=== PATIENT | male | born 1965 | race Caucasian/White ===

== ENCOUNTER 2023-04-22 12:10 | Outpatient (OUT) | payer OTHER, SELFPAY ==
[2023-04-22 13:41] LABS: Alanine Aminotransferase 38 U/L (16-63); Anion Gap 16.2; Aspartate Amino Transferase 17 U/L (15-37); BUN Creatinine Ratio 14.5; Calcium 9.5 mg/dL (8.5-10.1); Carbon Dioxide 25.9 mmol/L (21.0-32.0); Chloride 103 mmol/L (98-107); Chol HDL Ratio 2.9; Cholesterol 132 mg/dL (<=200); Estimated GFR (African America >60 (>=60); Estimated GFR (Non-African Ame >60 (>=60); Glucose 115 mg/dL (74-106); HDL Cholesterol 46 mg/dL (40-60); LDL Cholesterol Calculated 59.8 mg/dL; Potassium 4.1 mmol/L (3.5-5.1); Sodium 141 mmol/L (136-145); Triglycerides 131 mg/dL (<=150); VLDL CHOLESTEROL 26.2 mg/dL
== END 2023-04-22 12:11 | disposition home or self-care (01) ==
LOC: LAB 12:16
PROVIDERS: Visit Provider Nurse Practitioner
DX: I10 Essential (primary) hypertension (principal); I25.10 Atherosclerotic heart disease of native coronary artery without angina pectoris; E78.5 Hyperlipidemia, unspecified
CPT/HCPCS: 36415; 80048; 80061; 84450; 84460

== ENCOUNTER 2025-01-02 09:37 | Outpatient (OUT) | payer OTHER, SELFPAY ==
--- OUTSIDE RECORDS SUMMARY | 2025-01-01 09:30 | XMS_ITS | Encounter Summary ---
Author Organization [facility] Address [address] [place] [address] Phone Care Team Providers Care Financial Brokers Name Role Phone ByronPatric doll DO Primary Care Provider Reason for Referral * Consultation (Routine) - Authorized Specialty Diagnoses / Procedures Referred By Anurag phelan Referred To Contact Cardiology Diagnoses Coronary arteriosclerosis after percutaneous transluminal coronary angioplasty (PTCA) Procedures Follow Up In Cardiology Leta Cordero APRN-CNP [address] [place] [address] [address], [address] [address] Phone: tel: fax: Jose Gomez DO [address] [place] [address] [address], [address] [address] Phone: tel: fax: Referral ID Status Reason Start Date Expiration Date V isits Requested Visits Authorized [id number] Authorized 01/01/2025 01/01/2026 1 1 Reason for Visit * Reason Comments Annual Exam 1 year, coronary art madiha disease * Consultation (Routine) - Authorized Specialty Diagnoses / Procedures Referred By Contabby t Referred To Contact Cardiology Diagnoses Coronary arteriosclerosis after percutaneous transluminal coronary angioplasty (PTCA) Procedures Follow Up In Cardiology Jose Gomez DO [address] [place] [address] [address], [address] [address] Phone: tel: fax: Jose Gomez DO [address] [place] [address] [address], [address] [address] Phone: tel: fax: Referral ID Status Reason Start Date Expiration Date V isits Requested Visits Authorized [id number] Authorized 12/29/2023 12/28/2024 1 1 Encounter Details Date Type Department Care Team (Latest Contact Info) Description 01/01/2025 9:30 AM EDT Office Visit [facility] [address] [phone] Leta Cordero APRN-CNP 703 [facility] [address], [address] [address] Mixed hyperlipidemia (Primary Dx); Coronary arteriosclerosis after percutaneous transluminal coronary angioplasty (PTCA); Hypertension, benign; Ischemic cardiomyopathy; Morbid obesity with BMI of 40.0-44.9, adult (Multi) Social History Tobacco Use Types Packs/Day Years Used Date Smoking Tobacco: Former Cigarettes Smokeless Tobacco: Former Chew Alcohol Use Standard Drinks/Week Comments Yes 2 (1 standard drink = 0.6 oz pur e alcohol) social PHQ-2 Answer Date Recorded Patient Health Questionnaire-2 Score 0 05/03/2023 Sex and Gender Information Value Date Recorded Sex Assigned at Not on file Legal Sex Male 2:19 PM EST Gender Identity Not on file Sexual Orientation Not on file COVID-19 Exposure Response Date Recorded In the last 10 days, have yo u been in contact with someone who was confirmed or suspected to have Coronavirus/COVID-19? No / Unsure 01/01/2025 9:37 AM EDT documented as of this encounter Last Filed Vital Signs Vital Sign Reading Time Taken Comments Blood Pressure 138/76 01/01/2025 9:49 AM EDT Pulse 86 01/01/2025 9:49 AM EDT Temperature - - Respiratory Rate - - Oxygen Saturation - - Inhaled Oxygen Concentration - - Weight 145 kg (320 lb) 01/01/2025 9:49 AM EDT Height 185.4 cm (6' 1 ) 01/01/2025 9:49 AM EDT Body Mass Index 42.22 01/01/2025 9:49 AM EDT documented in this encounter Patient Instructions * Patient Instructions* MINH Reyes - 01/01/2025 9:30 AM EDT Please bring all medicines, vitamins, and herbal supplements with you when you come to the office. Prescriptions will not be filled unless you are compliant with your follow up appointments or have a follow up appointment scheduled as per instruction of your physician. Refills should be requested at the time of your visit. PLAN: Through informed decision making process incorporating patients unique circumstances, the followingtreatment plan will be initiated: 1. Prescription drug management of cardiovascular medication for efficacy, adherence to treatment, side effect assessment and polypharmacy. Current treatment clinically warranted and to continue without modifications. - Resume ASA 81mg daily 2. Annual labs (chem6, lipids) 3. You will need something to control your cholesterol due to coronary disease (only intolerant to lipitor in the past) - may try statin ( worried about your arthritis) or zetia, maybe repatha. 4. Return for follow-up; in the interim, contact the office if new symptoms arise. Dr. Gomez annual Discussed the dynamic nature of coronary artery disease and the importance of seeking medical attention if new symptoms arise. documented in this encounter Progress Notes * MINH Reyes - 01/01/2025 9:30 AM EDT Chief Complaint I am doing okay Reason for Visit Annual follow-up Patient presents to the office today for outpatient follow-up for coronary artery disease and secondary prevention. Last evaluated in clinic by Dr. Gomez December 2023. At that time, losartan added to medical regimen. Presents today ambulatory with steady gait. Accompanied by spouse Patient denies any hospitalizations or significant changes to interval medical history since last office follow-up. He does not follow routinely with PCP. Recently established with rheumatology and diagnosed with osteoarthritis. History of Present Illness Patient is a pleasant 59-year-old gentleman who presents to the office with no voiced cardiovascular complaints. From an activity standpoint he does yard work works out in the garden. Push mows his lawn for 45 minutes to 1 hour. His prior NSTEMI discomfort was left arm pain rating up into his jaw described as an aching sensation , denies-no nitroglycerin use. Only concern today is increased arthritic pain. He does present off of his statin and states he was unable to tolerate even every 3-day dosing. At this time, we will check lipid status to get baseline likely initiate Zetia. Once arthritis is under better control could consider challenge to different statins. Patient reports that overall has no complaint(s) of chest pain, chest pressure/discomfort, claudication, dyspnea, exertional chest pressure/discomfort, fatigue, irregular heart beat, lower extremity edema, and near-syncope Daily activity: > 4 METs Denies any change in exercise capacity or functional tolerance since last office visit. The importance of secondary prevention reviewed: HTN: Optimal HLD: Statin intolerant DM: Denies Smoker: Denies BMI: Reviewed the merits of healthy lifestyle choices on overall cardiovascular health. Reinforced the importance of establishing with PCP for primary prevention measures. Review of Systems Cardiovascular: Negative for chest pain, dyspnea on exertion, irregular heartbeat, leg swelling, near-syncope, orthopnea, palpitations, paroxysmal nocturnal dyspnea and syncope. Visit Vitals BP 138/76 (BP Location: Right arm, Patient Position: Sitting) Pulse 86 Ht 1.854 m (6' 1 ) Wt 145 kg (320 lb) BMI 42.22 kg/m?? Smoking Status Former BSA 2.73 m?? Physical Exam Constitutional: Appearance: Normal appearance. Cardiovascular: Rate and Rhythm: Normal rate and regular rhythm. Pulmonary: Effort: Pulmonary effort is normal. Breath sounds: Normal breath sounds. Abdominal: Palpations: Abdomen is soft. Musculoskeletal: Right lower leg: No edema. Left lower leg: No edema. Skin: General: Skin is warm and dry. Neurological: Mental Status: He is alert and oriented to person, place, and time. Psychiatric: Attention and Perception: Attention normal. Mood and Affect: Mood normal. ALLERGIES: Patient has no known allergies. Current Outpatient Medications Medication Instructions aspirin 81 mg, oral, Daily carvedilol (COREG) 6.25 mg, oral, 2 times daily hydroxychloroquine (Plaquenil) 200 mg tablet 1 tablet, 2 times daily losartan (COZAAR) 25 mg, oral, Daily meloxicam (MOBIC) 7.5 mg, 2 times daily metaxalone (SKELAXIN) 400 mg, Every 8 hours PRN nitroglycerin (Nitrostat) 0.[address] 1 TABLET UNDER THE TONGUE EVERY 5 MINUTES UP TO 3 DOSES NEEDED FOR CHEST PAIN. Assessment: Atherosclerotic heart disease of kenaitze coronary artery without angina pectoris May 28, 2021 NSTEMI Proximal RCA PCI/Skypoint 4 x 28 mm Proximal LAD PCI/Oj 4 x 30 mm Circumflex 30% Current daily activity greater than 4 METS without recurrent symptoms. Hyperlipidemia He has been unable to tolerate low-dose atorvastatin. Presents to the office today off of statin. Discussed the importance of lipid control. He has recently been struggling with arthritic complaints. Will check lipids, likely initiate Zetia. Once arthritis is under better control could try challenge with additional statin. Hypertension, benign Optimal in office Ischemic cardiomyopathy May 2021 cardiac cath LVEF 40% May 2021 TTE LVEF 55 to 60% September 2019 TTE LVEF 65-70% Morbid obesity with BMI of 40.0-44.9, adult (Multi) Reviewed the merits of healthy lifestyle choices on overall cardiovascular health. Plan: Through informed decision making process incorporating patients unique circumstances, the followingtreatment plan will be initiated: 1. Prescription drug management of cardiovascular medication for efficacy, adherence to treatment, side effect assessment and polypharmacy. Current treatment clinically warranted and to continue without modifications. - Resume ASA 81mg daily 2. Annual labs (chem6, lipids) 3. You will need something to control your cholesterol due to coronary disease (only intolerant to lipitor in the past) - may try statin ( worried about your arthritis) or zetia, maybe repatha. 4. Return for follow-up; in the interim, contact the office if new symptoms arise. Dr. Gomez annual Discussed the dynamic nature of coronary artery disease and the importance of seeking medical attention if new symptoms arise. Leta Cordero MSN, QUILLER RUNNER-APPLICATION PROGRAMMER ANALYST, PMHNP-[facility] [place], [place] Please excuse any errors in grammar or translation related to this dictation. Voice recognition software was utilized to prepare this document. documented in this encounter Miscellaneous Notes * Assessment & Plan Note - MINH Reyes - 01/01/2025 4:14 PM EDT Associated Problem(s): Morbid obesity with BMI of 40.0-44.9, adult (Multi) Reviewed the merits of healthy lifestyle choices on overall cardiovascular health. * Assessment & Plan Note - MINH Reyes - 01/01/2025 4:14 PM EDT Associated Problem(s): Ischemic cardiomyopathy May 2021 cardiac cath LVEF 40% May 2021 TTE LVEF 55 to 60% September 2019 TTE LVEF 65-70% * Assessment & Plan Note - MINH Reyes - 01/01/2025 4:14 PM EDT Associated Problem(s): Hypertension, benign Optimal in office * Assessment & Plan Note - MINH Reyes - 01/01/2025 4:14 PM EDT Associated Problem(s): Hyperlipidemia He has been unable to tolerate low-dose atorvastatin. Presents to the office today off of statin. Discussed the importance of lipid control. He has recently been struggling with arthritic complaints. Will check lipids, likely initiate Zetia. Once arthritis is under better control could try challenge with additional statin. * Assessment & Plan Note - MINH Reyes - 01/01/2025 4:13 PM EDT Associated Problem(s): Atherosclerotic heart disease of kenaitze coronary artery without angina pectoris May 28, 2021 NSTEMI Proximal RCA PCI/Skypoint 4 x 28 mm Proximal LAD PCI/[place] 4 x 30 mm Circumflex 30% Current daily activity greater than 4 METS without recurrent symptoms. documented in this encounter Plan of Treatment Upcoming Encounters Date Type Department Care Team (Late st Contact Info) Description 01/07/2026 3:20 PM EDT Office Visit [facility] [address] [place] [address] Jose Gomez DO [address], [address] [place] [address] Scheduled Orders Name Type Priority Associated Diagnoses Orde r Schedule Lipid Panel Lab Routine Coronary arteriosclerosis after percutaneous transluminal coronary angioplasty (PTCA) Mixed hyperlipidemia Expected: 01/01/2025 (Approximate), Expires: 01/01/2026 Alanine Aminotransferase Lab Routine Coronary arteriosclerosis after percutaneous transluminal coronary angioplasty (PTCA) Mixed hyperlipidemia Expected: 01/01/2025 (Approximate), Expires: 01/01/2026 Aspartate Aminotransferase Lab Routine Coronary arteriosclerosis after percutaneous transluminal coronary angioplasty (PTCA) Mixed hyperlipidemia Expected: 01/01/2025 (Approximate), Expires: 01/01/2026 Basic Metabolic Panel Lab Routine Coronary arteriosclerosis after percutaneous transluminal coronary angioplasty (PTCA) Mixed hyperlipidemia Expected: 01/01/2025 (Approximate), Expires: 01/01/2026 documented as of this encounter Visit Diagnoses Diagnosis Mixed hyperlipidemia- Primary Coronary arteriosclerosis after percutaneous transluminal coronary angioplasty (PTCA) Hypertension, benign Essential hypertension, benign Ischemic cardiomyopathy Other specified forms of chronic ischemic heart disease Morbid obesity with BMI of 40.0-44.9, adult (Multi) documented in this encounter Additional Health Concerns Assessment Noted Time A fall risk assessment has been complete d for the patient 05/03/2023 9:41 AM EDT documented as of this encounter Care Teams Financial Brokers Relationship Specialty Start Date End Date Patric Matthews DO [address] [facility] [place] [address] PCP - General 09/11/21 documented as of this encounter
--- OUTSIDE RECORDS SUMMARY | 2025-01-02 09:41 | XMS_ITS | Encounter Summary ---
Author Organization [facility] Address [address] [place] [address] Phone Care Team Providers Care Signs And Displays Salesperson Name Role Phone Patric Matthews DO Primary Care Provider Encounter Details Date Type Department Care Team (Late st Contact Info) Description 09/17/2021 Orders Only [facility] [address] [place] [address] Conversion, Onbase Social History Tobacco Use Types Packs/Day Years Used Date Smoking Tobacco: Never Assessed Sex and Gender Information Value Date Recorded Sex Assigned at Not on file Legal Sex Male 2:19 PM EST Gender Identity Not on file Sexual Orientation Not on file documented as of this encounter Plan of Treatment Upcoming Encounters Date Type Department Care Team (Late st Contact Info) Description 01/07/2026 3:20 PM EDT Office Visit [facility] 703 [facility] [address] [place] [phone] Jose Gomez DO [address] [facility] [address] [place], [place] [id number] Scheduled Orders Name Type Priority Associated Diagnoses Orde r Schedule OUTSIDE LAB SCAN Lab Ordered: 09/17/2021 documented as of this encounter Visit Diagnoses Not on filedocumented in this encounter Care Teams Signs And Displays Salesperson Relationship Specialty Start Date End Date Patric Matthews DO [address] [facility] [address] [place] [address] PCP - General 09/11/21 documented as of this encounter
--- OUTSIDE RECORDS SUMMARY | 2025-01-02 09:41 | XMS_ITS | Encounter Summary ---
Author Organization [facility] Address [address] [place] [address] Phone Care Team Providers Care Development Disability Specialist Name Role Phone Patric Matthews DO Primary Care Provider Encounter Details Date Type Department Care Team (Late st Contact Info) Description 05/29/2021 Orders Only [facility] [address] [place] [address] Conversion, Onbase Social History Tobacco Use Types [...] Description 01/07/2026 3:20 PM EDT Office Visit [facility] 703 [facility] [address] [place] [phone] Jose Gomez DO 703 [facility] 2, [address] [place], [place] [phone] Scheduled Orders Name Type Priority Associated Diagnoses Orde r Schedule OUTSIDE LAB SCAN Lab Ordered: 05/29/2021 OUTSIDE LAB SCAN Lab Ordered: 05/29/2021 documented as of this encounter Visit Diagnoses Not on filedocumented in this encounter Care Teams Development Disability Specialist Relationship Specialty Start Date End Date Patric Matthews DO [address] [facility] [address] [place] [address] PCP - General 09/11/21 documented as of this encounter
--- OUTSIDE RECORDS SUMMARY | 2025-01-02 09:41 | XMS_ITS | Encounter Summary ---
Author Organization [facility] Address [address] [place] [address] Phone Care Team Providers Care Hospice Music Therapy Name Role Phone Patric Matthews DO Primary Care Provider Encounter Details Date Type Department Care Team (Late st Contact Info) Description 02/24/2023 Scanned Document [facility] [address] [place] [address] Conversion, Onbase Social History Tobacco Use Types [...] Description 01/07/2026 3:20 PM EDT Office Visit [facility] 703 [facility] [address] [place] [phone] Jose Gomez DO [address] [facility] [facility] [address] [place] [address] documented as of this encounter Procedures Procedure Name Priority Date/Time Associated Diagnosis Comments CARDIAC STRESS TEST 02/24/2023 documented in this encounter Results * CARDIAC STRESS TEST (02/24/2023) Narrative 02/24/2023 Ordered by an unspecified provider. us Onbase Conversion CV STRESS PROCEDURES Final Res ult documented in this encounter Visit Diagnoses Not on filedocumented in this encounter Care Teams Hospice Music Therapy Relationship Specialty Start Date End Date Patric Matthews DO [address] [facility] [place] [address] PCP - General 09/11/21 documented as of this encounter
--- OUTSIDE RECORDS SUMMARY | 2025-01-02 09:41 | XMS_ITS | Clinical Summary ---
Author Organization [facility] Address [address] [place], [place] [id number] Care Team Providers Care Can Pusher Name Role Phone Patric Matthews DO Primary Care Provider Unavailable Allergies No known active allergies Medications lidocaine (XYLOCAINE) 2 % jelly Apply 1 application to affected area twice daily as needed (pain). 1 Tube 3 9 Active meloxicam (MOBIC) 7.5 mg tablet One tab po bid prn 60 tablet 3 5 Active Metaxalone 400 mg tab Take 1 tablet by mouth three times a day as needed. 60 tablet 1 5 Active hydrOXYchloroQU INE (PLAQUENIL) 200 mg tablet Take 1 tablet by mouth two times a day. 60 tablet 3 5 Active Encounters Date Type Department Care Team Description 10/24/2024 Results Follow-Up Rheumatology [address] [place] [address] Virginie Huber MD 10/19/2024 12:43 PM EDT - 10/19/2024 11:59 PM EDT Hospital Encounter Radiology [address] [place] [address] Pain in joint, multiple sites [M25.50] Discharge Disposition: Home 10/19/2024 Travel from Last 3 Months Social History Tobacco Use Types Packs/Day Years Used Date Smoking Tobacco: Never Assessed Area Deprivation Index Answer Date Iraj rded National Score (1-100), lower number is lower ri sk Not on file 07/01/2020 State Score (1-10), lower number is lower risk N ot on file 07/01/2020 Data from: https://www.neighborhoodatlas.medicine.[facility]/. Last address used for calculation Not on file 07/01/2020 Sex and Gender Information Value Date Recorded Sex Assigned at Not on file Legal Sex Male 2:56 PM EDT Gender Identity Not on file Sexual Orientation Not on file Last Filed Vital Signs Vital Sign Reading Time Taken Comments Blood Pressure 111/73 09/15/2024 8:13 AM EST Pulse 71 09/15/2024 8:13 AM EST Temperature 36.2 C (97.2 F) 09/15/2024 8:13 AM EST Respiratory Rate 16 04/10/2019 12:1 8 PM EDT Oxygen Saturation 97% 09/15/2024 8:13 AM EST Inhaled Oxygen Concentration - - Weight 143.3 kg (315 lb 14.7 oz) 09/15/2024 8:13 AM EST Height 185.4 cm (6' 1 ) 04/05/2019 1:45 PM EDT Body Mass Index 41.68 04/05/2019 1:45 PM EDT Plan of Treatment Upcoming Encounters Date Type Department Care Team (Late st Contact Info) Description 01/18/2025 10:20 AM EDT Office Visit Rheumatology [address] [place] [address] Virginie Huber MD [address] [facility] [address] [place], [place] [id number] 4 month follow up Health Maintenance Due Date Last Done Comments Anxiety Screening 1982 Depression Screening 1982 HIV Screening 1982 Hepatitis C Screening 1982 DTaP,Tdap,Td Vaccine (1 - Tdap) [address] Colonography 2009 Cologuard (FIT-DNA) 2009 Colonoscopy 2009 Colorectal Cancer Screening 2009 Diabetes Screening 2009 Fecal Occult Blood 2009 Prostate Cancer Screening Discussion 2009 Sigmoidoscopy 2009 Pneumococcal Vaccine: 50+ (1 of 1 - PCV) 2014 Shingrix Vaccine (1 of 2) 2014 Covid-19 Vaccine (1 - 2023- season) 2024 RSV Vaccine (1 - Risk 60-74 years 1-dose series) 2024 Influenza Vaccine (Season Ended) 2025 12/23/18 90, 07/25/1989 Procedures Procedure Name Priority Date/Time Associated Diagnosis Comments US HAND/WRIST SYNOVIAL SCREEN LEFT Routine 10/19/2024 1:20 PM EDT Pain in joint, multiple sites US HAND/WRIST SYNOVIAL SCREEN RIGHT Routine 10/19/2024 1:20 PM EDT Pain in joint, multiple sites from Last 3 Months Results * US HAND/WRIST SYNOVIAL SCREEN LEFT (10/19/2024 1:20 PM EDT) Anatomical Region Laterality Modality Ultrasound 10/19/2024 1:20 PM EDT Impressions 10/19/2024 2:20 PM EDT IMPRESSION: Minimal active synovitis in multiple MCP and PIP joints bilaterally and the left radiocarpal joint, as described. No tenosynovitis in the hands or wrists. Ice Resurfacing Machine Operators: [facility] Transcribe Date/Time: Oct 19 2024 1:20P Dictated by : MANUELITO HERNANDEZ MD This examination was interpreted and the report reviewed and electronically signed by: MANUELITO HERNANDEZ MD on Oct 19 2024 2:18PM EST Narrative 10/19/2024 2:20 PM EDT * * *Final Report* * * DATE OF EXAM: Oct 19 2024 1:20PM AFU 1198 - US HAND/WRIST SYNOVIAL SCREEN LT / PROCEDURE REASON: Pain in joint, multiple sites * * * * Physician Interpretation * * * * MSK_US SYNOVITIS SCREENING ULTRASOUND OF THE HANDS AND WRISTS: CLINICAL INFORMATION: Pain in joint, multiple sites TECHNIQUE: Daurte-scale, real-time ultrasound of both the right and left hand and wrist synovium and tenosynovium was performed with power Doppler examination. Images were saved to the permanent image archive. -2019 COMPARISON: X-ray: 09/15/2024 FINDINGS: RIGHT SIDE: RIGHT MCP AND PIP JOINT SYNOVIUM: 2ND MCP: Hypertrophy: Minimal. Power Doppler: Minimal. 2ND PIP: Hypertrophy: Minimal. Power Doppler: Minimal. 3RD MCP: Hypertrophy: Moderate. Power Doppler: Minimal. 3RD PIP: Hypertrophy: Minimal. Power Doppler: Minimal. 4TH MCP: Hypertrophy: Minimal. Power Doppler: None. 4TH PIP: Hypertrophy: Minimal. Power Doppler: Minimal. 5TH MCP: Hypertrophy: Minimal. Power Doppler: None. 5TH PIP: Hypertrophy: None. Power Doppler: None. RIGHT EXTENSOR AND FLEXOR TENOSYNOVIUM: 2ND Digit Flexor: Hypertrophy: None. Power Doppler: None. 2ND Digit Extensor: Hypertrophy: None. Power Doppler: None. 3RD Digit Flexor: Hypertrophy: None. Power Doppler: None. 3RD Digit Extensor: Hypertrophy: None. Power Doppler: None. 4TH Digit Flexor: Hypertrophy: None. Power Doppler: None. 4TH Digit Extensor: Hypertrophy: None. Power Doppler: None. 5TH Digit Flexor: Hypertrophy: None. Power Doppler: None. 5TH Digit Extensor: Hypertrophy: None. Power Doppler: None. CARPUS Synovitis: Hypertrophy: None. Power Doppler: None. OTHER: None. LEFT SIDE: LEFT MCP AND PIP JOINT SYNOVIUM: 2ND MCP: Hypertrophy: Minimal. Power Doppler: Minimal. 2ND PIP: Hypertrophy: Minimal. Power Doppler: Minimal. 3RD MCP: Hypertrophy: Minimal. Power Doppler: Minimal. 3RD PIP: Hypertrophy: None. Power Doppler: None. 4TH MCP: Hypertrophy: None. Power Doppler: None. 4TH PIP: Hypertrophy: None. Power Doppler: None. 5TH MCP: Hypertrophy: None. Power Doppler: None. 5TH PIP: Hypertrophy: Minimal. Power Doppler: Minimal. LEFT EXTENSOR AND FLEXOR TENOSYNOVIUM: 2ND Digit Flexor: Hypertrophy: None. Power Doppler: None. 2ND Digit Extensor: Hypertrophy: None. Power Doppler: None. 3RD Digit Flexor: Hypertrophy: None. Power Doppler: None. 3RD Digit Extensor: Hypertrophy: None. Power Doppler: None. 4TH Digit Flexor: Hypertrophy: None. Power Doppler: None. 4TH Digit Extensor: Hypertrophy: None. Power Doppler: None. 5TH Digit Flexor: Hypertrophy: None. Power Doppler: None. 5TH Digit Extensor: Hypertrophy: None. Power Doppler: None. CARPUS Synovitis: Hypertrophy: Minimal. Power Doppler: Minimal in the radiocarpal joint. OTHER: None. Procedure Note Provider, [facility] [place] - 10/19/2024 * * *Final Report* * * DATE OF EXAM: Oct 19 2024 1:20PM AFU 1198 - US HAND/WRIST SYNOVIAL SCREEN LT / PROCEDURE REASON: Pain in joint, multiple sites * * * * Physician Interpretation * * * * MSK_US SYNOVITIS SCREENING ULTRASOUND OF THE HANDS AND WRISTS: CLINICAL INFORMATION: Pain in joint, multiple sites TECHNIQUE: Duarte-scale, real-time ultrasound of both the right and left hand and wrist synovium and tenosynovium was performed with power Doppler examination. Images were saved to the permanent image archive. -2019 COMPARISON: X-ray: 09/15/2024 FINDINGS: RIGHT SIDE: RIGHT MCP AND PIP JOINT SYNOVIUM: 2ND MCP: Hypertrophy: Minimal. Power Doppler: Minimal. 2ND PIP: Hypertrophy: Minimal. Power Doppler: Minimal. 3RD MCP: Hypertrophy: Moderate. Power Doppler: Minimal. 3RD PIP: Hypertrophy: Minimal. Power Doppler: Minimal. 4TH MCP: Hypertrophy: Minimal. Power Doppler: None. 4TH PIP: Hypertrophy: Minimal. Power Doppler: Minimal. 5TH MCP: Hypertrophy: Minimal. Power Doppler: None. 5TH PIP: Hypertrophy: None. Power Doppler: None. RIGHT EXTENSOR AND FLEXOR TENOSYNOVIUM: 2ND Digit Flexor: Hypertrophy: None. Power Doppler: None. 2ND Digit Extensor: Hypertrophy: None. Power Doppler: None. 3RD Digit Flexor: Hypertrophy: None. Power Doppler: None. 3RD Digit Extensor: Hypertrophy: None. Power Doppler: None. 4TH Digit Flexor: Hypertrophy: None. Power Doppler: None. 4TH Digit Extensor: Hypertrophy: None. Power Doppler: None. 5TH Digit Flexor: Hypertrophy: None. Power Doppler: None. 5TH Digit Extensor: Hypertrophy: None. Power Doppler: None. CARPUS Synovitis: Hypertrophy: None. Power Doppler: None. OTHER: None. LEFT SIDE: LEFT MCP AND PIP JOINT SYNOVIUM: 2ND MCP: Hypertrophy: Minimal. Power Doppler: Minimal. 2ND PIP: Hypertrophy: Minimal. Power Doppler: Minimal. 3RD MCP: Hypertrophy: Minimal. Power Doppler: Minimal. 3RD PIP: Hypertrophy: None. Power Doppler: None. 4TH MCP: Hypertrophy: None. Power Doppler: None. 4TH PIP: Hypertrophy: None. Power Doppler: None. 5TH MCP: Hypertrophy: None. Power Doppler: None. 5TH PIP: Hypertrophy: Minimal. Power Doppler: Minimal. LEFT EXTENSOR AND FLEXOR TENOSYNOVIUM: 2ND Digit Flexor: Hypertrophy: None. Power Doppler: None. 2ND Digit Extensor: Hypertrophy: None. Power Doppler: None. 3RD Digit Flexor: Hypertrophy: None. Power Doppler: None. 3RD Digit Extensor: Hypertrophy: None. Power Doppler: None. 4TH Digit Flexor: Hypertrophy: None. Power Doppler: None. 4TH Digit Extensor: Hypertrophy: None. Power Doppler: None. 5TH Digit Flexor: Hypertrophy: None. Power Doppler: None. 5TH Digit Extensor: Hypertrophy: None. Power Doppler: None. CARPUS Synovitis: Hypertrophy: Minimal. Power Doppler: Minimal in the radiocarpal joint. OTHER: None. IMPRESSION IMPRESSION: Minimal active synovitis in multiple MCP and PIP joints bilaterally and the left radiocarpal joint, as described. No tenosynovitis in the hands or wrists. Ice Resurfacing Machine Operators: [facility] Transcribe Date/Time: Oct 19 2024 1:20P Dictated by : MANUELITO HERNANDEZ MD This examination was interpreted and the report reviewed and electronically signed by: MANUELITO HERNANDEZ MD on Oct 19 2024 2:18PM EST us Virginie Huber MD [facility] Final Result * US HAND/WRIST SYNOVIAL SCREEN RIGHT (10/19/2024 1:20 PM EDT) Anatomical Region Laterality Modality Ultrasound 10/19/2024 1:00 PM EDT Impressions 10/19/2024 2:20 PM EDT IMPRESSION: Minimal active synovitis in multiple MCP and PIP joints bilaterally and the left radiocarpal joint, as described. No tenosynovitis in the hands or wrists. Ice Resurfacing Machine Operators: [facility] Transcribe Date/Time: Oct 19 2024 1:20P Dictated by : MANUELITO HERNANDEZ MD This examination was interpreted and the report reviewed and electronically signed by: MANUELITO HERNANDEZ MD on Oct 19 2024 2:18PM EST Narrative 10/19/2024 2:20 PM EDT * * *Final Report* * * DATE OF EXAM: Oct 19 2024 1:00PM AFU 1197 - US HAND/WRIST SYNOVIAL SCREEN RT / PROCEDURE REASON: Pain in joint, multiple sites * * * * Physician Interpretation * * * * MSK_US SYNOVITIS SCREENING ULTRASOUND OF THE HANDS AND WRISTS: CLINICAL INFORMATION: Pain in joint, multiple sites TECHNIQUE: Duarte-scale, real-time ultrasound of both the right and left hand and wrist synovium and tenosynovium was performed with power Doppler examination. Images were saved to the permanent image archive. -2019 COMPARISON: X-ray: 09/15/2024 FINDINGS: RIGHT SIDE: RIGHT MCP AND PIP JOINT SYNOVIUM: 2ND MCP: Hypertrophy: Minimal. Power Doppler: Minimal. 2ND PIP: Hypertrophy: Minimal. Power Doppler: Minimal. 3RD MCP: Hypertrophy: Moderate. Power Doppler: Minimal. 3RD PIP: Hypertrophy: Minimal. Power Doppler: Minimal. 4TH MCP: Hypertrophy: Minimal. Power Doppler: None. 4TH PIP: Hypertrophy: Minimal. Power Doppler: Minimal. 5TH MCP: Hypertrophy: Minimal. Power Doppler: None. 5TH PIP: Hypertrophy: None. Power Doppler: None. RIGHT EXTENSOR AND FLEXOR TENOSYNOVIUM: 2ND Digit Flexor: Hypertrophy: None. Power Doppler: None. 2ND Digit Extensor: Hypertrophy: None. Power Doppler: None. 3RD Digit Flexor: Hypertrophy: None. Power Doppler: None. 3RD Digit Extensor: Hypertrophy: None. Power Doppler: None. 4TH Digit Flexor: Hypertrophy: None. Power Doppler: None. 4TH Digit Extensor: Hypertrophy: None. Power Doppler: None. 5TH Digit Flexor: Hypertrophy: None. Power Doppler: None. 5TH Digit Extensor: Hypertrophy: None. Power Doppler: None. CARPUS Synovitis: Hypertrophy: None. Power Doppler: None. OTHER: None. LEFT SIDE: LEFT MCP AND PIP JOINT SYNOVIUM: 2ND MCP: Hypertrophy: Minimal. Power Doppler: Minimal. 2ND PIP: Hypertrophy: Minimal. Power Doppler: Minimal. 3RD MCP: Hypertrophy: Minimal. Power Doppler: Minimal. 3RD PIP: Hypertrophy: None. Power Doppler: None. 4TH MCP: Hypertrophy: None. Power Doppler: None. 4TH PIP: Hypertrophy: None. Power Doppler: None. 5TH MCP: Hypertrophy: None. Power Doppler: None. 5TH PIP: Hypertrophy: Minimal. Power Doppler: Minimal. LEFT EXTENSOR AND FLEXOR TENOSYNOVIUM: 2ND Digit Flexor: Hypertrophy: None. Power Doppler: None. 2ND Digit Extensor: Hypertrophy: None. Power Doppler: None. 3RD Digit Flexor: Hypertrophy: None. Power Doppler: None. 3RD Digit Extensor: Hypertrophy: None. Power Doppler: None. 4TH Digit Flexor: Hypertrophy: None. Power Doppler: None. 4TH Digit Extensor: Hypertrophy: None. Power Doppler: None. 5TH Digit Flexor: Hypertrophy: None. Power Doppler: None. 5TH Digit Extensor: Hypertrophy: None. Power Doppler: None. CARPUS Synovitis: Hypertrophy: Minimal. Power Doppler: Minimal in the radiocarpal joint. OTHER: None. Procedure Note Provider, [facility] [place] - 10/19/2024 * * *Final Report* * * DATE OF EXAM: Oct 19 2024 1:00PM AFU 1197 - US HAND/WRIST SYNOVIAL SCREEN RT / PROCEDURE REASON: Pain in joint, multiple sites * * * * Physician Interpretation * * * * MSK_US SYNOVITIS SCREENING ULTRASOUND OF THE HANDS AND WRISTS: CLINICAL INFORMATION: Pain in joint, multiple sites TECHNIQUE: Duarte-scale, real-time ultrasound of both the right and left hand and wrist synovium and tenosynovium was performed with power Doppler examination. Images were saved to the permanent image archive. [email or web address] COMPARISON: X-ray: 09/15/2024 FINDINGS: RIGHT SIDE: RIGHT MCP AND PIP JOINT SYNOVIUM: 2ND MCP: Hypertrophy: Minimal. Power Doppler: Minimal. 2ND PIP: Hypertrophy: Minimal. Power Doppler: Minimal. 3RD MCP: Hypertrophy: Moderate. Power Doppler: Minimal. 3RD PIP: Hypertrophy: Minimal. Power Doppler: Minimal. 4TH MCP: Hypertrophy: Minimal. Power Doppler: None. 4TH PIP: Hypertrophy: Minimal. Power Doppler: Minimal. 5TH MCP: Hypertrophy: Minimal. Power Doppler: None. 5TH PIP: Hypertrophy: None. Power Doppler: None. RIGHT EXTENSOR AND FLEXOR TENOSYNOVIUM: 2ND Digit Flexor: Hypertrophy: None. Power Doppler: None. 2ND Digit Extensor: Hypertrophy: None. Power Doppler: None. 3RD Digit Flexor: Hypertrophy: None. Power Doppler: None. 3RD Digit Extensor: Hypertrophy: None. Power Doppler: None. 4TH Digit Flexor: Hypertrophy: None. Power Doppler: None. 4TH Digit Extensor: Hypertrophy: None. Power Doppler: None. 5TH Digit Flexor: Hypertrophy: None. Power Doppler: None. 5TH Digit Extensor: Hypertrophy: None. Power Doppler: None. CARPUS Synovitis: Hypertrophy: None. Power Doppler: None. OTHER: None. LEFT SIDE: LEFT MCP AND PIP JOINT SYNOVIUM: 2ND MCP: Hypertrophy: Minimal. Power Doppler: Minimal. 2ND PIP: Hypertrophy: Minimal. Power Doppler: Minimal. 3RD MCP: Hypertrophy: Minimal. Power Doppler: Minimal. 3RD PIP: Hypertrophy: None. Power Doppler: None. 4TH MCP: Hypertrophy: None. Power Doppler: None. 4TH PIP: Hypertrophy: None. Power Doppler: None. 5TH MCP: Hypertrophy: None. Power Doppler: None. 5TH PIP: Hypertrophy: Minimal. Power Doppler: Minimal. LEFT EXTENSOR AND FLEXOR TENOSYNOVIUM: 2ND Digit Flexor: Hypertrophy: None. Power Doppler: None. 2ND Digit Extensor: Hypertrophy: None. Power Doppler: None. 3RD Digit Flexor: Hypertrophy: None. Power Doppler: None. 3RD Digit Extensor: Hypertrophy: None. Power Doppler: None. 4TH Digit Flexor: Hypertrophy: None. Power Doppler: None. 4TH Digit Extensor: Hypertrophy: None. Power Doppler: None. 5TH Digit Flexor: Hypertrophy: None. Power Doppler: None. 5TH Digit Extensor: Hypertrophy: None. Power Doppler: None. CARPUS Synovitis: Hypertrophy: Minimal. Power Doppler: Minimal in the radiocarpal joint. OTHER: None. IMPRESSION IMPRESSION: Minimal active synovitis in multiple MCP and PIP joints bilaterally and the left radiocarpal joint, as described. No tenosynovitis in the hands or wrists. Ice Resurfacing Machine Operators: [facility] Transcribe Date/Time: Oct 19 2024 1:20P Dictated by : MANUELITO HERNANDEZ MD This examination was interpreted and the report reviewed and electronically signed by: MANUELITO HERNANDEZ MD on Oct 19 2024 2:18PM EST Virgiine Huber MD -[facility] Final Result from Last 3 Months Insurance Care Teams Can Pusher Relationship Specialty Start Date End Date Patric Matthews DO [address] [place] [address] PCP - General Family Medicine 09/05/24
--- OUTSIDE RECORDS SUMMARY | 2025-01-02 09:41 | XMS_ITS | Encounter Summary ---
Author Organization [facility] Address [address] [place] [address] Phone Care Team Providers Care Manager Embalmer Funeral Director Name Role Phone Patric Matthews DO Primary Care Provider Reason for Visit * Reason Comments Med Refill Encounter Details Date Type Department Care Team (Late Contact Info) Description 01/02/[address] [place] [address] Jose Gomez DO [address] [place] [address] [address] [place] [address] Hypertension, benign Social History Tobacco Use Types Packs/Day Years [...] AM EDT documented as of this encounter Plan of Treatment Upcoming Encounters Date Type Department Care Team (Late Contact Info) Description 01/07/2026 3:20 PM EDT Office Visit [address] [place] [address] Jose Gomez DO [address] [place], [place] [address] [address] [place] [address] documented as of this encounter Visit Diagnoses Diagnosis Hypertension, benign Essential hypertension, benign documented in this encounter Additional Health Concerns Assessment Noted Time A fall risk assessment has been complete d for the patient 05/03/2023 9:41 AM EDT documented as of this encounter Care Teams Manager Embalmer Funeral Director Relationship Specialty Start Date End Date Patric Matthews DO [address] [facility] [address] [place] [address] PCP - General 09/11/21 documented as of this encounter
--- OUTSIDE RECORDS SUMMARY | 2025-01-02 09:41 | XMS_ITS | Encounter Summary ---
Author Organization [facility] Address [address] [place] [address] Phone Care Team Providers Care Executive Recruiter Name Role Phone Patric Matthews DO Primary Care Provider Encounter Details Date Type Department Care Team (Latest Contact Info) Description 01/01/2025 Travel Social History Tobacco Use Types Packs/Day Years [...] Description 01/07/2026 3:20 PM EDT Office Visit [facility] [address] [facility] [address] [place] [id number] Jose Gomez DO [address] [facility] [address] [place], [place] [id number] documented as of this encounter Visit Diagnoses Not on filedocumented in this encounter Additional Health Concerns Assessment Noted Time A fall risk assessment has been complete d for the patient 05/03/2023 9:41 AM EDT documented as of this encounter Care Teams Executive Recruiter Relationship Specialty Start Date End Date Patric Matthews DO [address] [facility] [place] [address] PCP - General 09/11/21 documented as of this encounter
--- OUTSIDE RECORDS SUMMARY | 2025-01-02 09:41 | XMS_ITS | Clinical Summary ---
Author Organization [facility] Address [address] [place] [address] Phone Care Team Providers Care Wood Flooring Specialist Name Role Phone Patric Matthews DO Primary Care Provider Allergies No known active allergies Medications nitroglycerin (Nitrostat) 0.[address] 1 TABLET UNDER THE TONGUE EVERY 5 MINUTES UP TO 3 DOSES NEEDED FOR CHEST PAIN. 021 Active aspirin 81 mg EC tabletIndications :Atherosclerotic heart disease of hoh coronary artery without angina pectoris TAKE 1 TABLET BY MOUTH EVERY DAY 30 tablet 11 024 Active Additional Information Patient not taking.Reported on 01/01/2025 losartan (Cozaar) 25 mg tabletIndications :Hypertension, benign Take 1 tablet (25 mg) by mouth once daily. 90 tablet 3 024 Active meloxicam (Mobic) 7.5 mg tablet Take 1 tablet (7.5 mg) by mouth 2 times a day. Active carvedilol (Coreg) 6.25 mg tabletIndications :Ischemic cardiomyopathy Take 1 tablet (6.25 mg) by mouth 2 times a day. 180 tablet 3 025 2025 Active metaxalone (Skelaxin) 400 mg tablet Take 1 tablet (400 mg) by mouth every 8 hours if needed. 025 Active hydroxychloroquin e (Plaquenil) 200 mg tablet Take 1 tablet (200 mg) by mouth 2 times a day. Active carvedilol (Coreg) 6.25 mg tabletIndications :Hypertension, benign Take 1 tablet (6.25 mg) by mouth 2 times a day. 90 tablet 3 023 2024 Discontinued atorvastatin (Lipitor) 80 mg tabletIndications :Hyperlipidemia, unspecified hyperlipidemia type Take 0.5 tablets (40 mg) by mouth every other day. 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 Dizziness 03/28/2023 Hyperlipidemia 03/28/2023 Assessment & Plan (01/01/2025 4:14 PM EDT): He has been unable to tolerate low-dose atorvastatin. Presents to the office today off of statin. Discussed the importance of lipid control. He has recently been struggling with arthritic complaints. Will check lipids, likely initiate Zetia. Once arthritis is under better control could try challenge with additional statin. Hypertension, benign 03/28/2023 Assessment & Plan (01/01/2025 4:14 PM EDT): Optimal in office Ischemic cardiomyopathy 03/28/2023 Assessment & Plan (01/01/2025 4:14 PM EDT): May 2021 cardiac cath LVEF 40% May 2021 TTE LVEF 55 to 60% September 2019 TTE LVEF 65-70% NSTEMI, initial episode of care (Multi) 03/28/20 23 Palpitation 03/28/2023 Morbid obesity with BMI of 40.0-44.9, adult (Mul ti) 03/28/2023 Assessment & Plan (01/01/2025 4:14 PM EDT): Reviewed the merits of healthy lifestyle choices on overall cardiovascular health. Encounters Date Type Department Care Team Description 01/02/2025 Refill [facility] [address] [place] [address] Jose Gomez DO Hypertension, benign 01/01/2025 9:30 AM EDT Office Visit [address] [address] Leta Cordero, FARM ASSISTANT-AGING ROOM HAND Mixed hyperlipidemia (Primary Dx); Coronary arteriosclerosis after percutaneous transluminal coronary angioplasty (PTCA); Hypertension, benign; Ischemic cardiomyopathy; Morbid obesity with BMI of 40.0-44.9, adult (Multi) 01/01/2025 Travel 12/21/[address] [address] Jose Gomez DO Ischemic cardiomyopathy 12/05/2024 Telephone [place] [address] [place] [address] Steph Ward LPN dental work from Last 3 Months Immunizations Immunization Administration Dates Next Due Influenza, Unspecified 12/23/1989,07/25/1989 Family History Medical History Relation Name Comments ALS Father Angina Father of effort cabg Father Relation Name Status Comments Father Social History Tobacco Use Types Packs/Day Years [...] No / Unsure 01/01/2025 9:37 AM EDT Last Filed Vital Signs Vital Sign Reading [...] Mass Index 42.22 01/01/2025 9:49 AM EDT Plan of Treatment Upcoming Encounters Date Type Department Care Team (Late st Contact Info) Description 01/07/2026 3:20 PM EDT Office Visit [facility] [address] [facility] [address] [place] [address] Jose Gomez, [address] [facility] [facility] [address] [place] [address] Health Maintenance Due Date Last Done Comments CT Colonography 1964 Colonoscopy 1964 Colorectal Cancer Screening 1964 FIT-DNA (Cologuard) 1964 FIT 1964 HIV Screening 1964 Lipid Panel 1964 Sigmoidoscopy 1964 Yearly Adult Physical 1964 MMR Vaccines (1 of 1 - Standard series) 1965 Diabetes Screening 1982 Hepatitis C Screening 1982 Pneumococcal Vaccine (1 of 2 - PCV) 1983 DTaP/Tdap/Td Vaccines (1 - Tdap) 1986 Zoster Vaccines (1 of 2) 2014 COVID-19 Vaccine (1 - 2023-2 5 season) 2024 RSV High Risk: (Elderly (60+ ) or Population) (1 - Risk 60-74 years 1-dose series) 2024 Influenza Vaccine (Season Ended) 2025 12/23/1989, 07/25/1989 HIB Vaccines Aged Out No longer eligi ble based on patient's age to complete this topic HPV Vaccines Aged Out No longer eligi ble based on patient's age to complete this topic Hepatitis A Vaccines Aged Out No long er eligible based on patient's age to complete this topic Hepatitis B Vaccines Aged Out No long er eligible based on patient's age to complete this topic IPV Vaccines Aged Out No longer eligi ble based on patient's age to complete this topic Meningococcal Vaccine Aged Out No pino mai eligible based on patient's age to complete this topic Rotavirus Vaccines Aged Out No longer eligible based on patient's age to complete this topic Insurance Member Subscriber Plan / Payer (Ef fective 2022-Present) Name:NoKyle Member ID:Not on file Relation to Subscriber:Spouse Name:NOBIRD Date of :1964 (Home) Address: [address] [id number] Payer ID:[id number] Group ID:Not on file Type:Not on file Address: [address] Care Teams Wood Flooring Specialist Relationship Specialty Start Date End Date Patric Matthews DO [address] [facility] [address] [address] PCP - General 09/11/21
--- OUTSIDE RECORDS SUMMARY | 2025-01-02 09:41 | XMS_ITS | Clinical Summary ---
Author Organization [facility] Address [address] [place] [address] Care Team Providers Care Ceramics Engineer Name Role Phone Unavailable Primary Care Provider Unavailabl e Social History Tobacco Use Types Packs/Day Years Used Date Smoking Tobacco: Never Assessed Sex and Gender Information Value Date Recorded Sex Assigned at Not on file Legal Sex Male 11:23 PM EDT Gender Identity Not on file Sexual Orientation Not on file Plan of Treatment Not on file
--- OUTSIDE RECORDS SUMMARY | 2025-01-02 09:42 | XMS_ITS | Encounter Summary ---
Author Organization [facility] Address [address] [place], [place] [id number] Care Team Providers Care Character Artist Name Role Phone Patric Matthews DO Primary Care Provider Unavailable Source Comments In the event this information is protected by the Federal Confidentiality of Alcohol and Drug AbusePatient Records regulations: The Federal rules restrict any use of the information to criminally investigate or prosecute any alcohol or drug abuse patient.[facility] Encounter Details Date Type Department Care Team (Late st Contact Info) Description 09/19/2024 Patient Msg Rheumatology [address] [place] [address] Virginie Huber MD [address] [facility] [address] [place], [place] [id number] labs and xrays Social History Tobacco Use Types Packs/Day Years Used Date Smoking Tobacco: Never Assessed Area Deprivation Index Answer Date Iraj rded National Score (1-100), lower number is lower ri sk Not on file 07/01/2020 State Score (1-10), lower number is lower risk N ot on file 07/01/2020 Data from: https://www.neighborhoodatlas.medicine.[facility].edu/. Last address used for calculation Not on [...] 01/18/2025 10:20 AM EDT Office Visit Rheumatology [address] [place] [address] Virginie Huber MD [address] [place], [place] [id number] 4 month follow up documented as of this encounter Visit Diagnoses Not on filedocumented in this encounter Care Teams Character Artist Relationship Specialty Start Date End Date Patric Matthews DO [address] [place] [address] PCP - General Family Medicine 09/05/24 documented as of this encounter
--- OUTSIDE RECORDS SUMMARY | 2025-01-02 09:42 | XMS_ITS | Encounter Summary ---
Author Organization [facility] Address [address] [place] [address] Care Team Providers Care Motorbike Courier Name Role Phone Patric Matthews DO Primary Care Provider Unavailable Source Comments In the event this information is protected by the Federal Confidentiality of Alcohol and Drug AbusePatient Records regulations: The Federal rules restrict any use of the information to criminally investigate or prosecute any alcohol or drug abuse patient.[facility] Encounter Details Date Type Department Care Team (Late st Contact Info) Description 10/24/2024 Results Follow-Up Rheumatology [address] [place] [address] Virginie Huber MD [address] [facility] [address] [place] [address] Social History Tobacco Use Types Packs/Day Years Used Date Smoking Tobacco: Never Assessed Area Deprivation Index Answer Date Iraj rded National Score (1-100), lower number is lower ri sk Not on file 07/01/2020 State Score (1-10), lower number is lower risk N ot on file 07/01/2020 Data from: https://www.neighborhoodatlas.medicine.[facility].edu/. Last address used for calculation Not [...] 01/18/2025 10:20 AM EDT Office Visit Rheumatology [address] [place] [address] Virginie Huber MD [address] [facility] [address] [place], [place] [id number] 4 month follow up documented as of this encounter Visit Diagnoses Not on filedocumented in this encounter Care Teams Motorbike Courier Relationship Specialty Start Date End Date Patric Matthews DO [address] [place] [address] PCP - General Family Medicine 09/05/24 documented as of this encounter
--- OUTSIDE RECORDS SUMMARY | 2025-01-02 09:42 | XMS_ITS | Encounter Summary ---
Author Organization [facility] Address [address] [place] [address] Care Team Providers Care Artillery Or Naval Gunfire Observer Name Role Phone Patric Matthews DO Primary Care Provider Unavailable Source Comments In the event this information is protected by the Federal Confidentiality of Alcohol and Drug AbusePatient Records regulations: The Federal rules restrict any use of the information to criminally investigate or prosecute any alcohol or drug abuse patient.[facility] Encounter Details Date Type Department Care Team (Late st Contact Info) Description 09/10/2024 Patient [facility] [address] [place] [address] Suzi Griffith RPh At your next appointment, choose [facility]. Social History Tobacco Use Types Packs/Day Years Used Date Smoking Tobacco: Never Assessed Area Deprivation Index Answer Date Iraj rded National Score (1-100), lower number is lower ri sk Not on file 07/01/2020 State Score (1-10), lower number is lower risk N ot on file 07/01/2020 Data from: https://www.neighborhoodatlas.medicine.[facility].edu/. Last address used for calculation Not on [...] 01/18/2025 10:20 AM EDT Office Visit Rheumatology [address] [place] [address] Virginie Huber MD [address] [place] [address] 4 month follow up documented as of this encounter Visit Diagnoses Not on filedocumented in this encounter Care Teams Artillery Or Naval Gunfire Observer Relationship Specialty Start Date End Date Patric Matthews DO [address] [place] [address] PCP - General Family Medicine 09/05/24 documented as of this encounter
[2025-01-02 10:29] LABS: Alanine Aminotransferase 41 U/L (16-63); Aspartate Amino Transferase 15 U/L (15-37); BUN Creatinine Ratio 15.5; Calcium 9.4 mg/dL (8.5-10.1); Carbon Dioxide 30.4 mmol/L (21.0-32.0); Chloride 103 mmol/L (98-107); Chol HDL Ratio 5.2; Cholesterol 214 mg/dL (<=200); Estimated GFR (African America >60 (>=60 mL/min/1.73m^2); Estimated GFR (Non-African Ame >60 (>=60 mL/min/1.73m^2); Glucose 116 mg/dL (74-106); HDL Cholesterol 41 mg/dL (40-60); Potassium 4.4 mmol/L (3.5-5.1); Sodium 142 mmol/L (136-145); Triglycerides 277 mg/dL (<=150); VLDL CHOLESTEROL 55.4 mg/dL
== END 2025-01-02 09:38 | disposition home or self-care (01) ==
LOC: LAB 09:39
PROVIDERS: Visit Provider Nurse Practitioner
DX: I25.10 Atherosclerotic heart disease of native coronary artery without angina pectoris (principal); Z98.61 Coronary angioplasty status; E78.2 Mixed hyperlipidemia
CPT/HCPCS: 36415; 80048; 80061; 84450; 84460